=== PATIENT | female | born 1960 | race Caucasian/White ===

== ENCOUNTER 2017-06-09 12:43 | Inpatient (IN) | payer MEDICAID, OTHER ==
[~2017-06-09] VITALS: Ht 152.4 cm; Wt 80.6 kg
[2017-06-09 13:35] VITALS: BP 144/97
[2017-06-09] MEDS ORDERED: ZOLPIDEM TARTRATE 10 MG TABLET PO PRN (13:45)
[2017-06-09] MEDS ORDERED: LORazepam 2 MG TABLET PO PRN (13:45)
[2017-06-09] MEDS ORDERED: HALOPERIDOL 5 MG TABLET PO PRN (13:45)
[2017-06-09 15:00] VITALS: BP 149/97
[2017-06-09 22:05] VITALS: BP 122/81
[2017-06-10] MEDS ORDERED: IBUPROFEN 400 MG TABLET PO PRN (01:15)
[2017-06-10 01:27] VITALS: BP 129/61
[2017-06-10] MEDS: ACETAMINOPHEN 325 MG TABLET PO PRN ×3 (01:30→17:52)
[2017-06-10 17:01] VITALS: BP 125/81
[2017-06-10 17:50] VITALS: BP 125/79
[2017-06-10 21:45] VITALS: BP 120/61
[2017-06-10] MEDS ORDERED: ACETAMINOPHEN 325 MG TABLET PO ONE (21:45)
[2017-06-11] MEDS: ACETAMINOPHEN 325 MG TABLET PO PRN (06:12)
[2017-06-11] MEDS ORDERED: FERROUS SULFATE 325 MG EC TABLET PO SCH (07:00)
[2017-06-11] MEDS ORDERED: ESCITALOPRAM OXALATE 10 MG TABLET PO SCH (09:00)
[2017-06-11] MEDS ORDERED: ESCI5TAB PO (10:32)
[2017-06-11] MEDS ORDERED: ESCI10TA PO (10:33)
== END 2017-06-11 12:00 | disposition home or self-care (01) | DRG 751 ==
LOC: B2S 13:57
DX: F33.9 Major depressive disorder, recurrent, unspecified (principal); D66 Hereditary factor VIII deficiency; R45.851 Suicidal ideations; D64.9 Anemia, unspecified; F41.1 Generalized anxiety disorder; F17.210 Nicotine dependence, cigarettes, uncomplicated; Z59.0 Homelessness

== ENCOUNTER 2017-06-09 17:05 | Emergency (ER) | payer MEDICAID, OTHER ==
[~2017-06-09] VITALS: Ht 152.4 cm; Wt 79.1 kg
[2017-06-09] MEDS ORDERED: ACETAMINOPHEN 500 MG TABLET PO ONE (19:45)
[2017-06-09 19:54] VITALS: BP 138/64
[2017-06-09 20:00] LABS: BASOPHILS % (AUTO) 0.6 % (0.0-2.0); EOSINOPHILS % (AUTO) 0.2 % (1.0-6.0); HEMOGLOBIN 16.7 g/dL (12.0-16.0); LYMPHOCYTES # (AUTO) 1.2 K/uL (1.0-4.8); LYMPHOCYTES % (AUTO) 20.4 % (22.0-44.0); MEAN CORPUSCULAR HEMOGLOBIN 29.6 pg (26.0-34.0); MEAN CORPUSCULAR VOLUME 87 fL (80-100); MONOCYTES # (AUTO) 0.5 K/uL (0.1-1.0); MONOCYTES % (AUTO) 8.3 % (2.0-9.0); NEUTROPHILS # (AUTO) 4.2 K/uL (1.8-7.7); NEUTROPHILS % (AUTO) 70.5 % (40.0-70.0); PLATELET COUNT (AUTO) 127 K/uL (150-450); RED BLOOD CELL COUNT(AUTO) 5.64 MIL/uL (4.00-5.20); RED CELL DISTRIBUTION WIDTH 14.1 % (11.5-14.5)
[2017-06-09 20:20] LABS: AMPHET/METH SCREEN,URINE NEGATIVE (NEGATIVE); BARBITURATE SCREEN, URINE NEGATIVE (NEGATIVE); BENZODIAZEPINES SCREEN,URINE NEGATIVE (NEGATIVE); CANNABINOID SCREEN,URINE NEGATIVE (NEGATIVE); COCAINE SCREEN,URINE NEGATIVE (NEGATIVE); METHADONE SCREEN, URINE NEGATIVE (NEGATIVE); OPIATE SCREEN,URINE NEGATIVE (NEGATIVE)
[2017-06-09 20:27] LABS: PHENCYCLIDINE SCREEN,URINE NEGATIVE (NEGATIVE)
[2017-06-09 20:28] LABS: ALANINE AMINOTRANSFERASE 26 U/L (12-78); ALBUMIN 3.8 g/dL (3.4-5.0); ALKALINE PHOSPHATASE 94 U/L (46-116); ANION GAP 5 mmol/L (8-16); ASPARTATE AMINOTRANSFERASE 16 U/L (15-37); BILIRUBIN,TOTAL 0.5 mg/dL (0.1-1.0); CALCIUM, TOTAL 9.1 mg/dL (8.8-10.5); CARBON DIOXIDE 25 mmol/L (22-29); CHLORIDE 106 mmol/L (98-107); CREATININE 0.84 mg/dL (0.60-1.30); GLOMERULAR FILTR. RATE CALC > 60 mL/min (>60); GLUCOSE,RANDOM 98 mg/dL (70-110); POTASSIUM 3.7 mmol/L (3.5-5.1); SODIUM SERUM 136 mmol/L (136-145); TOTAL PROTEIN, SERUM 7.4 g/dL (6.4-8.2); UREA NITROGEN, BLOOD 12 mg/dL (7-18)
[2017-06-09 21:14] LABS: PLATELET MORPHOLOGY COMMENT DECREASED
== END 2017-06-09 21:35 | disposition home or self-care (01) ==
LOC: EMS 17:07
DX: G62.9 Polyneuropathy, unspecified (principal); M79.601 Pain in right arm; M54.2 Cervicalgia; R45.851 Suicidal ideations; Z02.89 Encounter for other administrative examinations
CPT/HCPCS: 36415; 80053; 80307; 85025; 99284; G0480

== ENCOUNTER 2019-10-03 15:31 | Emergency (ER) | payer MEDICAID, OTHER ==
[~2019-10-03] VITALS: Ht 154.9 cm; Wt 80.9 kg
[~2019-10-03 15:31] MED LIST: ESCI10TA PO
[2019-10-03 17:28] LABS: BASOPHILS % (AUTO) 1.1 % (0.0-2.0); EOSINOPHILS % (AUTO) 1.3 % (1.0-6.0); HEMATOCRIT 52.4 % (36-46); HEMOGLOBIN 17.1 g/dL (12.0-16.0); LYMPHOCYTES # (AUTO) 2.8 K/uL (1.0-4.8); MEAN CORPUSCULAR HGB CONC 32.7 G/dL (31.0-37.0); MEAN CORPUSCULAR VOLUME 86 fL (80-100); MONOCYTES # (AUTO) 0.7 K/uL (0.1-1.0); MONOCYTES % (AUTO) 7.6 % (2.0-9.0); NEUTROPHILS # (AUTO) 5.9 K/uL (1.8-7.7); PLATELET COUNT (AUTO) 227 K/uL (150-450); RED BLOOD CELL COUNT(AUTO) 6.11 MIL/uL (4.00-5.20); RED CELL DISTRIBUTION WIDTH 15.2 % (11.5-14.5)
[2019-10-03 17:45] LABS: CALCIUM, TOTAL 9.8 mg/dL (8.8-10.5); CREATININE 1.02 mg/dL (0.60-1.30); POTASSIUM 3.9 mmol/L (3.5-5.1)
[2019-10-03 17:56] LABS: D-DIMER 0.52 mg/L FEU (0.00-0.50); PROTHROMBIN TIME 10.2 SEC (9.4-11.6)
[2019-10-03 17:57] LABS: ALBUMIN 4.2 g/dL (3.4-5.0); BILIRUBIN,TOTAL 0.5 mg/dL (0.1-1.0); C-REACTIVE PROTEIN QUANT 1.62 mg/dL (0.00-0.30); TOTAL PROTEIN, SERUM 7.9 g/dL (6.4-8.2)
[2019-10-03 18:39] VITALS: BP 140/85
[2019-10-03 19:30] LABS: ERYTHROCYTE SEDIMENTATION RATE 7 MM/HR (0-20)
[2019-10-03] MEDS ORDERED: DiphenhydrAMINE HCL 50 MG CAPSULE PO ONE (19:45)
== END 2019-10-03 20:21 | disposition home or self-care (01) ==
LOC: EMS 15:32
DX: R21 Rash and other nonspecific skin eruption (principal); R20.8 Other disturbances of skin sensation; R05 Cough; F17.210 Nicotine dependence, cigarettes, uncomplicated; Z03.818 Encounter for observation for suspected exposure to other biological agents ruled out
CPT/HCPCS: 85379; 85384; 85651; 86140; 87635; 93005; 99406